=== PATIENT | male | born 1995 | race Caucasian/White ===

== ENCOUNTER 2019-08-06 16:43 | Emergency (ER) | payer BC ==
[2019-08-06] MEDS ORDERED: Lidocaine 1% with EPINEPHrine 1:100,000 50 ML MDV INJECT STA (17:10)
--- NOTE | 2019-08-06 17:33 | EDM.PDOC ---
ED HPI GENERAL MEDICAL PROBLEM - General Chief Complaint: Skin Complaint Stated Complaint: PAIN IN TAILBONE Time Seen by Provider: 08/06/19 17:15 Source of Information: Reports: Patient History Limitations: Reports: No Limitations - History of Present Illness INITIAL COMMENTS - FREE TEXT/NARRATIVE: Leo is a 23 year old male, presents to the ED today with c/o swollen painful area to tailbone for the last few days. Ibuprofen for pain helps some, sitting or any pressure to area makes symptoms worse, no hx of this in the past. Patient denies any fever/chills/nausea/vomiting. Onset: Gradual Duration: Day(s): (5) - Related Data Allergies Allergy/AdvReac Type Severity Reaction Status Date / Time No Known Allergies Allergy Verified 08/06/19 16:58 Home Meds: Home Meds NK [No Known Home Meds] 08/06/19 [History] Past Medical History - Past Surgical History HEENT Surgical History: Reports: Adenoidectomy, Tonsillectomy Social & Family History - Tobacco Use Smoking Status *Q: Never Smoker ED ROS GENERAL - Review of Systems Review Of Systems: ROS reveals no pertinent complaints other than HPI. ED EXAM, SKIN/RASH Exam: See Below Exam Limited By: No Limitations General Appearance: Alert, WD/WN, No Apparent Distress Respiratory/Chest: No Respiratory Distress Cardiovascular: Bradycardia Back Exam: Normal Inspection Extremities: Normal Inspection Neurological: Alert, Oriented, CN II-XII Intact Psychiatric: Normal Affect Skin: Warm, Dry, Other (pilonidal cyst/abscess to tailbone area with central fluctuance and surrouding induration, mild erythema centrally, no surrounding or spreading erythema past buttock cleft) ED SKIN PROCEDURES - I&D Skin Prep: Chlorhexidine (Hibiciens) Local Anesthesia: Lidocaine: 1% with EPI Local Anesthetic Volume: 5cc Area Incised With: 11 Blade Drainage: Purulent, Moderate Amount Probed to Break Up Loculations: Yes Packed With: 1/4 in. Iodoform Sterile Dressing: Adhesive Dressing, 4x4(s) Complications: No Course - Vital Signs Last Recorded V/S: Last Vital Signs Temp 36.6 C 08/06/19 17:03 Pulse 50 L 08/06/19 17:03 Resp 16 08/06/19 17:03 BP 119/61 08/06/19 17:03 Pulse Ox 97 08/06/19 17:03 Pilonidal cyst/abscess. I and D done after obtaining patient verbal consent. See procedure note, patient tolerated well. Small to moderate amount of foul smelling purulent drainage returned, packed with 1/4 inch iodoform gauze. Follow up in clinic, request made for patient to have packing removed no later than Thursday, preferably Thursday, started on Bactrim for concerns of early cellulitis. Ibuprofen/Tylenol for pain as needed. Reasons to return discussed. Patient agreeable and discharged in stable condition. - Orders/Labs/Meds Meds: Medications Discontinued Medications Generic Name Dose Route Start Last Admin Trade Name Sanchez PRN Reason Stop Dose Admin Lidocaine/Epinephrine 10 ml 08/06/19 17:10 08/06/19 17:19 Xylocaine 1% With Epinephrine 1:100,000 INJECT 08/06/19 17:11 10 ml NOW STA Administration Departure - Departure Time of Disposition: 18:00 Disposition: Home, Self-Care 01 Condition: Good Clinical Impression: Pilonidal cyst with abscess - Discharge Information Instructions: Pilonidal Cyst, Incision and Drainage, Care After Referrals: PCP,None [Primary Care Provider] - Forms: ED Department Discharge Additional Instructions: Follow up in clinic early this next week for re-check and removal of packing. If packing falls out on it's own it is fine. Do not keep this packing in past Thursday. Keep clean and dry. Ibuprofen/Tylenol for pain as needed. Start the antibiotic today and take as prescribed. Return here for any worsening symptoms.
== END 2019-08-06 17:38 | disposition home or self-care (01) ==
LOC: JP.ED 16:43
DX: L05.01 Pilonidal cyst with abscess (principal)
CPT/HCPCS: 10080; 99283-25